=== PATIENT | female | born 1960 | race Caucasian/White ===

== ENCOUNTER 2022-02-16 09:45 | Outpatient (CLI) | payer OTHER, SELFPAY | END 2022-02-16 09:46 | disposition home or self-care (01) | LOC: RAD 09:46 | PROVIDERS: PCP Family Medicine; Visit Provider Family Medicine | DX: R01.1 Cardiac murmur, unspecified (principal) | CPT/HCPCS: 93306 ==

== ENCOUNTER 2022-05-30 14:43 | Outpatient (CLI) | payer OTHER, SELFPAY ==
--- NOTE | 2022-05-30 15:00 | CRLHL7_ITS ---
For Patients: As a result of the Cures Act, medical imaging exams and procedure reports are released immediately into your electronic medical record. You may view this report before your referring provider. If you have questions, please contact your health care provider. BILATERAL SCREENING MAMMOGRAM WITH COMPUTER-AIDED DETECTION AND TOMOSYNTHESIS TECHNIQUE: CC and MLO views were obtained. These mammographic images have been obtained using full-field digital technique. These mammographic images were interpreted with the benefit of computer-aided detection. Breast Tomosynthesis was used in this interpretation. COMPARISON FILM: 05/18/21, 03/10/20, 03/09/19. FINDINGS: There are scattered areas of fibroglandular density IMPRESSION: There is no radiographic evidence for malignancy. ASSESSMENT: BI-RADS Category 1: Negative RECOMMENDATION: Routine screening mammogram in 1 year. A lay language report of this examination will be provided to the patient. Cliff Agudelo M.D. Diagnostic Radiologist [email or web address] Transcribed: 1:58 p.mDb arias/Dictated by: Cliff Agudelo MD @ 05/31/2022 10:13:00 AM (Electronically Signed)
== END 2022-05-30 14:44 | disposition home or self-care (01) ==
LOC: MAMMO 14:44
PROVIDERS: PCP Family Medicine; Visit Provider Family Medicine
DX: Z12.31 Encounter for screening mammogram for malignant neoplasm of breast (principal)
CPT/HCPCS: 77063; 77067

== ENCOUNTER 2023-08-26 14:48 | Outpatient (CLI) | payer BC, SELFPAY ==
--- NOTE | 2023-08-26 15:00 | MM_ITS ---
Patient: CHRIS CRUZ Facility:?[facility] Patient ID:?[id number] Site Patient ID:?[id number]. Site :?[id number] Study:?XRay-Breast Bilateral 3D W/CAD-08/26/2023 3:33:25 PM Ordering Physician:Aguilar Mckinley Final Report: BILATERAL SCREENING MAMMOGRAM WITH COMPUTER-AIDED DETECTION AND TOMOSYNTHESIS TECHNIQUE: CC and MLO views were obtained. These mammographic images have been obtained using full-field digital technique. These mammographic images were interpreted with the benefit of computer-aided detection. Breast Tomosynthesis was used in this interpretation. COMPARISON FILM: 05/30/22, 05/18/21, 03/10/20. FINDINGS: There are scattered areas of fibroglandular density. IMPRESSION: There is no radiographic evidence for malignancy. ASSESSMENT: BI-RADS Category 1: Negative RECOMMENDATION: Routine screening mammogram in 1 year. A lay language report of this examination will be provided to the patient. Cliff Agudelo M.D. Diagnostic Radiologist [email or web address] DSM/sp R& Transcribed: 3:21 p.m. SP/Dictated by: Cliff Agudelo MD @ 08/27/2023 1:08:00 PM Signed by:?Cliff Agudelo MD @08/27/2023 3:56:49 PM (Electronic Signature)
== END 2023-08-26 14:49 | disposition home or self-care (01) ==
LOC: MAMMO 14:49
PROVIDERS: PCP Family Medicine; Visit Provider Family Medicine
DX: Z12.31 Encounter for screening mammogram for malignant neoplasm of breast (principal)
CPT/HCPCS: 77063; 77067

== ENCOUNTER 2024-09-07 12:47 | Outpatient (CLI) | payer BC, SELFPAY ==
--- NOTE | 2024-09-07 13:00 | CRLHL7_ITS ---
For Patients: As a result of the Century Cures Act, medical imaging exams and procedure reports are released immediately into your electronic medical record. You may view this report before your referring provider. If you have questions, please contact your health care provider. Indication: Left cervical radiculopathy Technique: Multiplanar, multisequence MRI of the cervical spine obtained without contrast. Comparison: None. Findings: The normal cervical lordosis is preserved. No significant spondylolisthesis. Vertebral body heights are within normal limits. No evidence of acute fracture. Bone marrow signal is unremarkable. Included posterior fossa structures are unremarkable. Visualized spinal cord appears normal in course and caliber. No convincing cord signal abnormality. No suspicious findings in the prevertebral or paraspinal soft tissues. C2-C3: No neural foraminal or spinal canal stenosis. C3-C4: Shallow posterior disc-osteophyte complex, uncovertebral arthropathy. Mild right, moderate left neural foraminal stenosis. No spinal canal stenosis. C4-C5: Shallow posterior disc-osteophyte complex, uncovertebral arthropathy. Moderate bilateral neural foraminal stenosis. Mild spinal canal narrowing. C5-C6: Shallow posterior disc-osteophyte complex, uncovertebral arthropathy. Moderate left, moderately severe right neural foraminal stenosis. Mild spinal canal narrowing. C6-C7: Shallow posterior disc-osteophyte complex, uncovertebral arthropathy. Mild bilateral neural foraminal narrowing. No spinal canal stenosis. C7-T1: No neural foraminal or spinal canal stenosis. Impression: 1. Cervical spondylosis as detailed. 2. At C3-C4, moderate left neural foraminal stenosis, and mild right neural foraminal narrowing. 3. At C4-C5, moderate bilateral neural foraminal stenosis, and mild spinal canal narrowing. 4. At C5-C6, moderate left and moderately severe right neural foraminal stenosis with potential right C6 nerve root impingement, and mild spinal canal narrowing. 5. At C6-C7, mild bilateral neural foraminal narrowing. Dictated by Lacey Rincon MD @ 09/07/2024 2:02:43 PM (Electronically Signed)
== END 2024-09-07 12:48 | disposition home or self-care (01) ==
PROVIDERS: PCP Family Medicine; Visit Provider Family Medicine
DX: M54.12 Radiculopathy, cervical region (principal); M47.892 Other spondylosis, cervical region; M48.02 Spinal stenosis, cervical region; M50.223 Other cervical disc displacement at C6-C7 level
CPT/HCPCS: 72141

== ENCOUNTER 2024-09-24 14:55 | Outpatient (CLI) | payer BC, SELFPAY ==
--- NOTE | 2024-09-24 15:00 | CRLHL7_ITS ---
For Patients: As a result of the Century Cures Act, medical imaging exams and procedure reports are released immediately into your electronic medical record. You may view this report before your referring provider. If you have questions, please contact your health care provider. BILATERAL DIGITAL SCREENING MAMMOGRAM WITH COMPUTER-AIDED DETECTION AND TOMOSYNTHESIS CLINICAL HISTORY: Routine screening exam. COMPARISON: 08/26/2023, 05/30/2022, 05/18/2021 TECHNIQUE: Digital mammogram in CC and MLO projections including computer-aided detection (CAD). Tomosynthesis was used in this interpretation. BREAST COMPOSITION: There are scattered areas of fibroglandular density. FINDINGS: RIGHT Breast: Focal asymmetric density within the lateral right breast 7 cm from the nipple. LEFT Breast: No suspicious findings. IMPRESSION: RIGHT breast asymmetry/mass. RECOMMENDATIONS: Additional mammographic views of the RIGHT breast including 3D spot compression CC/MLO. RIGHT breast ultrasound may also be required. The [facility] will contact the patient. A lay language report of this examination will be provided to the patient. BI-RADS Category 0: Incomplete: Need Additional Imaging Evaluation Dictated by Cliff Agudelo MD @ 09/25/2024 1:00:43 PM Dictated by: Cliff Agudelo MD @ 09/25/2024 13:00:45 (Electronically Signed)
== END 2024-09-24 14:56 | disposition home or self-care (01) ==
LOC: MAMMO 14:55
PROVIDERS: PCP Family Medicine; Visit Provider Family Medicine
DX: Z12.31 Encounter for screening mammogram for malignant neoplasm of breast (principal); N63.10 Unspecified lump in the right breast, unspecified quadrant
CPT/HCPCS: 77063; 77067

== ENCOUNTER 2024-10-12 10:36 | Outpatient (CLI) | payer BC, SELFPAY ==
--- NOTE | 2024-10-12 10:45 | CRLHL7_ITS ---
For Patients: As a result of the Century Cures Act, medical imaging exams and procedure reports are released immediately into your electronic medical record. You may view this report before your referring provider. If you have questions, please contact your health care provider. CLINICAL HISTORY: RIGHT breast mass/asymmetry. COMPARISON: 09/24/2024, 08/31/2023, 05/19/2019 TECHNIQUE: Digital BILATERAL mammogram in 4 projections with computer-aided detection. Tomosynthesis was used in this interpretation. Real-time ultrasound imaging of RIGHT breast with imaging documentation. BREAST COMPOSITION: There are scattered areas of fibroglandular density. FINDINGS: 3D cc/MLO bilateral mammogram images submitted. Decreased conspicuity of previously noted asymmetric density within the right breast. No architectural distortion or suspicious calcifications. No adenopathy. Targeted right breast ultrasound performed at 9 o`clock 7 cm from the nipple. Normal fibroglandular tissue is present. No fibrocystic change or mass. IMPRESSION: No suspicious findings are present. No evidence of malignancy. RECOMMENDATIONS: Routine screening mammography. A lay language report of this examination will be provided to the patient. BI-RADS Category 2: Benign Dictated by Cliff Agudelo MD @ 10/12/2024 11:25:30 AM NIKKY/Dictated by: Cliff Agudelo MD @ 10/12/2024 11:25:00 AM (Electronically Signed)
--- NOTE | 2024-10-12 11:15 | CRLHL7_ITS ---
For Patients: As a result of the Century Cures Act, medical imaging exams and procedure reports are released immediately into your electronic medical record. You may view this report before your referring provider. If you have questions, please contact your health care provider. Please see BILATERAL diagnostic mammogram for combined report. DM:[email or web address] 11/12/2024 DW/Dictated by: Cliff Agudelo MD @ 10/12/2024 11:25:00 AM (Electronically Signed)
== END 2024-10-12 10:37 | disposition home or self-care (01) ==
LOC: MAMMO 10:36
PROVIDERS: PCP Family Medicine; Visit Provider Family Medicine
DX: R92.8 Other abnormal and inconclusive findings on diagnostic imaging of breast (principal); N63.10 Unspecified lump in the right breast, unspecified quadrant
CPT/HCPCS: 76642; 77065; G0279